=== PATIENT | female | born 2000 | race Hispanic/Latino ===

== ENCOUNTER 2024-05-26 15:34 | Emergency (ER) | payer MEDICAID ==
[~2024-05-26] VITALS: Ht 152.4 cm; Wt 65.3 kg
[2024-05-26 15:51] VITALS: BP 126/69; PULSE 83; RESP 18; TEMP 98.1; O2SAT 99
[2024-05-26] MEDS ORDERED: NS 1000ML 1,000 ML ONE (16:55)
[2024-05-26] MEDS ORDERED: OFIRMEV 1000 MG/100 ML 100 ML IV ONE (16:56)
[2024-05-26] MEDS: NS 1000ML 1,000 ML IV STA (16:57)
[2024-05-26] MEDS: OFIRMEV 1000 MG/100 ML 100 ML IV STA (16:57)
[2024-05-26 17:31] LABS: BASOPHIL % 0.3 % (0.1-1.2); EOSINOPHIL # 0.1 10^3/uL (0.0-0.2); EOSINOPHIL % 0.7 % (0.0-5.0); HEMATOCRIT(ML) 35.9 % (36.0-46.0); HEMOGLOBIN 12.1 g/dL (12.0-15.0); IG % 0.1 % (0.00-0.50); LYMPHOCYTES # 1.08 10^3/uL1 (1.0-4.8); LYMPHOCYTES % 14.6 % (24.0-44.0); MEAN CORP HGB 28.5 pg (26-34); MEAN CORP HGB CONCENTRATION 33.7 g/dL (33-36.5); MEAN CORP VOLUME 84.5 fL (78-100); MONOCYTES # 0.3 10^3/uL (0.3-0.8); MONOCYTES % 3.9 % (5.0-12.0); NEUTROPHIL # 5.9 10^3/uL (1.8-7.7); NEUTROPHILS % 80.4 % (41.0-85.0); RED BLOOD CELL 4.25 10^6/uL (4.00-5.20); RED CELL DISTRIBUTION WIDTH 14.6 % (11.5-14.5); WHITE BLOOD CELL 7.4 10^3/uL (4.5-11.0)
[2024-05-26 17:33] LABS: BILIRUBIN,URINE NEGATIVE (NEGATIVE); LEUKOCYTE ESTERASE ,URINE NEGATIVE (NEGATIVE); NITRATE,URINE NEGATIVE (NEGATIVE)
[2024-05-26 17:34] LABS: APPEARANCE,URINE CLEAR; UA COLOR YELLOW
[2024-05-26 17:50] LABS: ALBUMIN(ML) 3.3 g/dL (3.4-5.0); ALBUMIN/GLOBULIN RATIO 0.868; ANION GAP 14.7; BUN/CREATININE RATIO 10.44 (10.0-20.0); CALCIUM 8.6 mg/dL (8.4-10.5); CREATININE SERUM 0.67 mg/dL (0.59-1.40); EST GFR, NON-AA 108.1 (>/=60); POTASSIUM 3.7 mmol/L (3.6-5.2)
[2024-05-26 18:31] VITALS: BP 104/56; PULSE 87; RESP 18; TEMP 98.1; O2SAT 99
== END 2024-05-26 18:36 | disposition home or self-care (01) ==
LOC: ER 15:34
DX: O26.892 Other specified pregnancy related conditions, second trimester (principal); O99.282 Endocrine, nutritional and metabolic diseases complicating pregnancy, second trimester; O23.42 Unspecified infection of urinary tract in pregnancy, second trimester; N39.0 Urinary tract infection, site not specified; R06.02 Shortness of breath; E86.0 Dehydration; Z3A.15 15 weeks gestation of pregnancy
CPT/HCPCS: 99285; 96365; 71045; 87086; 76815; 80053; 85025; 36415; 85379; 84484; 81001; 87186; 87077; 93005; J7030; J0131; 83690